=== PATIENT | female | born 1980 | race Caucasian/White ===

== ENCOUNTER 2017-07-06 15:09 | Outpatient (CLI) | payer OTHER ==
--- NOTE | 2017-07-06 16:13 | ULT ---
THYROID ULTRASOUND: 07/06/17 INDICATION: Thyroid nodules. COMPARISON: None. FINDINGS: The right thyroid gland measured 1.3 x 3.4 x 1.3 cm. There is a hypoechoic well circumscribed solid n odule measuring 5 x 7 mm within the right mid thyroid gland. There is additional hypoechoic solid 5 x 3 mm nodule within the inferior pole of the right thyroid gland. There is a 2 mm hypoechoic solid no dule within the mid aspect of the right mid thyroid gland. The left thyroid lobe measures 1.3 x 3.6 x 1.3 cm. The thyroid isthmus measured 2.7 mm. IMPRESSION: 1. TI-RADS 4 lesion involving the right thyroid gland. These are all less than 1 cm in size. No followup is recommended 2. No suspicious nodules in the left thyroid lobe or thyroid isthmus. POS: [facility]
== END 2017-07-06 15:10 | disposition home or self-care (01) ==
LOC: SCSULT 15:09
PROVIDERS: ATTEND Otolaryngology Plastic Surgery within the Head & Neck
DX: E04.2 Nontoxic multinodular goiter (principal); E07.9 Disorder of thyroid, unspecified
CPT/HCPCS: 76536